=== PATIENT | male | born 1970 | race Caucasian/White ===

== ENCOUNTER 2019-12-18 13:42 | Outpatient (CLI) | payer MEDICARE, MEDICAID, SELFPAY ==
[2019-12-18 14:14] LABS: Basophils Absolute Auto 0.1 K/mm3 (0.0-0.1); Basophils Percent Auto 0.8 % (0.2-1.2); Eosinophils Absolute Auto 0.2 K/mm3 (0-0.3); Eosinophils Percent Auto 1.9 % (0-4.4); Hematocrit 45.1 % (42.0-52.0); Hemoglobin 15.4 g/dL (14.0-18.0); Immature Granulocyte Absolute 0.01 K/mm3 (0.00-0.031); Immature Granulocyte Percent A 0.1 % (0-0.5); Lymphocytes Absolute Auto 2.16 K/mm3 (0.9-3.2); Lymphocytes Percent Auto 27.5 % (18.3-44.2); Mean Corpuscular HGB Conc 34.1 g/dl (32-36); Mean Corpuscular Hemoglobin 30.1 pg (26-34); Mean Corpuscular Volume 88.1 fl (80-100); Mean Platelet Volume 11.2 fl (7.4-10.4); Monocytes Absolute Auto 0.5 K/mm3 (0.1-0.6); Monocytes Percent Auto 6.2 % (2.6-8.5); Neutrophils Percent Auto 63.5 % (45.5-73.1); Platelet Count Result 188 k/mm3 (150-375); Red Blood Count 5.12 M/mm3 (4.6-6.20); Red Cell Distribution Width 14.2 % (11.5-14.5); White Blood Count 7.9 K/mm3 (4.5-10.0)
[2019-12-18 14:25] LABS: Alanine Aminotransferase 26 U/L (4-50); Albumin Level 4.2 g/dL (3.5-5.1); Alkaline Phosphatase 111 U/L (38-126); Anion Gap 7 mmol/L (8-16); Aspartate Amino Transferase 24 U/L (17-59); Bilirubin,Total 0.4 mg/dL (0.2-1.3); Blood Urea Nitrogen 14 mg/dL (9-20); Calcium 8.8 mg/dL (8.4-10.2); Carbon Dioxide 25 mmol/L (22-30); Chloride 106 mmol/L (98-107); Cholesterol 169 mg/dL (0-200); Estimated Glomerular Filt Rate > 60; Glucose 97 mg/dL (75-110); HDL Direct 24 mg/dL; Potassium 3.7 mmol/L (3.4-5.0); Sodium 138 mmol/L (137-145); Triglycerides 123 mg/dL (<150)
[2019-12-18 14:36] LABS: LDL Cholesterol Direct 122 mg/dL
== END 2019-12-18 13:43 | disposition home or self-care (01) ==
PROVIDERS: PCP Internal Medicine; Visit Provider Nurse Practitioner
DX: E78.5 Hyperlipidemia, unspecified (principal)
CPT/HCPCS: 36415; 80053; 80061; 85025

== ENCOUNTER 2020-06-22 15:52 | Outpatient (CLI) | payer MEDICARE, MEDICAID, SELFPAY | END 2020-06-22 15:53 | disposition home or self-care (01) | LOC: ANHCOVIDVC 15:52 | PROVIDERS: PCP Internal Medicine | DX: Z23 Encounter for immunization (principal) | CPT/HCPCS: 0001A; 91300 ==

== ENCOUNTER 2020-07-13 15:46 | Outpatient (CLI) | payer MEDICARE, MEDICAID, SELFPAY | END 2020-07-13 15:47 | disposition home or self-care (01) | LOC: ANHCOVIDVC 15:46 | PROVIDERS: PCP Internal Medicine | DX: Z23 Encounter for immunization (principal) | CPT/HCPCS: 0002A; 91300 ==

== ENCOUNTER 2021-05-25 13:24 | Outpatient (CLI) | payer OTHER, SELFPAY ==
--- NOTE | ~2021-05-25 | MR_ITS ---
EXAMINATION: MR cervical spine wo con DATE: 05/25/2021 15:05 INDICATION: Cervical radiculopathy. TECHNIQUE: Magnetic resonance imaging (MRI) of the cervical spine was performed without intravenous c ontrast. Sequences included sagittal T2-weighted FSE, sagittal T2-weighted FS FSE, sagittal T1-weight ed FSE, axial MERGE, and axial T2-weighted FSE. COMPARISON: None FINDINGS: Bone alignment is normal. Vertebral body heights are normal. There is mildly decreased disc height at C3-C4, moderately decreased disc height at C4-C5, and severely decreased disc height at C5 -C6 and C6-C7. The spinal cord signal intensity is normal. The following disc levels are specifically discussed: C2-C3: The disc does not extend beyond the endplate margin. There is mild right uncovertebral joint o steoarthritis. There is moderate bilateral facet joint osteoarthritis. There is mild right neural for aminal stenosis. There is no central canal stenosis. C3-C4: There is a central protrusion. There is severe right and mild left uncovertebral joint osteoar thritis. There is severe bilateral facet joint osteoarthritis. There is mild bilateral neural foramin al stenosis. There is no central canal stenosis. C4-C5: The disc is bulging. There is severe bilateral uncovertebral joint osteoarthritis. There is mo derate right and severe left facet joint osteoarthritis. There is moderate bilateral neural foraminal stenosis. There is mild central canal stenosis. C5-C6: The disc is bulging. There is severe bilateral uncovertebral joint osteoarthritis. There is mo derate bilateral facet joint osteoarthritis. There is severe right and moderate left neural foraminal stenosis. There is mild central canal stenosis. C6-C7: The disc is bulging. There is severe bilateral uncovertebral joint osteoarthritis. There is mo derate bilateral facet joint osteoarthritis. There is moderate bilateral neural foraminal stenosis. T here is mild central canal stenosis. C7-T1: The disc does not extend beyond the endplate margin. There is no uncovertebral joint osteoarth ritis. There is severe bilateral facet joint osteoarthritis. There is mild bilateral neural foraminal stenosis. There is no central canal stenosis. IMPRESSION: 1. Severe cervical spondylosis. Reviewed, dictated and finalized at location E. COMMANDER
[2021-05-25 15:55] LABS: Basophils Percent Auto 0.5 % (0.2-1.2); Eosinophils Absolute Auto 0.1 K/mm3 (0-0.3); Eosinophils Percent Auto 1.5 % (0-4.4); Hematocrit 44.5 % (42.0-52.0); Hemoglobin 15.2 g/dL (14.0-18.0); Immature Granulocyte Absolute 0.02 K/mm3 (0.00-0.031); Immature Granulocyte Percent A 0.2 % (0-0.5); Lymphocytes Percent Auto 25.4 % (18.3-44.2); Mean Corpuscular HGB Conc 34.2 g/dl (32-36); Mean Corpuscular Hemoglobin 30.3 pg (26-34); Mean Corpuscular Volume 88.8 fl (80-100); Mean Platelet Volume 11.3 fl (7.4-10.4); Monocytes Absolute Auto 0.4 K/mm3 (0.1-0.6); Monocytes Percent Auto 5.1 % (2.6-8.5); Neutrophils Absolute Auto 5.6 K/mm3 (1.3-6.7); Neutrophils Percent Auto 67.3 % (45.5-73.1); Platelet Count Result 185 k/mm3 (150-375); Red Blood Count 5.01 M/mm3 (4.6-6.20); Red Cell Distribution Width 14.5 % (11.5-14.5); White Blood Count 8.3 K/mm3 (4.5-10.0)
[2021-05-25 16:32] LABS: Potassium 3.4 mmol/L (3.4-5.0)
[2021-05-25 16:43] LABS: LDL Cholesterol Direct 105 mg/dL
[2021-05-25 16:50] LABS: Alanine Aminotransferase 19 U/L (4-50); Albumin Level 4.2 g/dL (3.5-5.1); Alkaline Phosphatase 139 U/L (38-126); Anion Gap 5 mmol/L (8-16); Aspartate Amino Transferase 28 U/L (17-59); Bilirubin,Total 0.3 mg/dL (0.2-1.3); Blood Urea Nitrogen 14 mg/dL (9-20); Carbon Dioxide 26 mmol/L (22-30); Chloride 106 mmol/L (98-107); Cholesterol 154 mg/dL (0-200); Estimated Glomerular Filt Rate > 60; Glucose 85 mg/dL (65-110); HDL Direct 24 mg/dL; Sodium 137 mmol/L (137-145); Triglycerides 94 mg/dL (<150)
== END 2021-05-25 13:25 | disposition home or self-care (01) ==
LOC: ANHIMG 13:28
PROVIDERS: PCP Internal Medicine; Visit Provider Nurse Practitioner
DX: Z13.228 Encounter for screening for other metabolic disorders (principal); M47.22 Other spondylosis with radiculopathy, cervical region
CPT/HCPCS: 36415; 72141; 80053; 80061; 85025

== ENCOUNTER 2022-04-14 14:10 | Outpatient (CLI) | payer MEDICARE, MEDICAID, SELFPAY ==
[2022-04-14 21:15] LABS: Basophils Absolute Auto 0.1 K/mm3 (0.0-0.1); Basophils Percent Auto 0.9 % (0.2-1.2); Eosinophils Absolute Auto 0.1 K/mm3 (0-0.3); Eosinophils Percent Auto 1.6 % (0-4.4); Hematocrit 45.8 % (42.0-52.0); Hemoglobin 15.3 g/dL (14.0-18.0); Immature Granulocyte Absolute 0.02 K/mm3 (0.00-0.031); Immature Granulocyte Percent A 0.3 % (0-0.5); Lymphocytes Absolute Auto 2.34 K/mm3 (0.9-3.2); Lymphocytes Percent Auto 30.7 % (18.3-44.2); Mean Corpuscular HGB Conc 33.4 g/dl (32-36); Mean Corpuscular Hemoglobin 29.9 pg (26-34); Mean Corpuscular Volume 89.5 fl (80-100); Mean Platelet Volume 11.7 fl (7.4-10.4); Monocytes Absolute Auto 0.6 K/mm3 (0.1-0.6); Monocytes Percent Auto 8.1 % (2.6-8.5); Neutrophils Absolute Auto 4.4 K/mm3 (1.3-6.7); Neutrophils Percent Auto 58.4 % (45.5-73.1); Platelet Count Result 171 k/mm3 (150-375); Red Blood Count 5.12 M/mm3 (4.6-6.20); Red Cell Distribution Width 15.6 % (11.5-14.5); White Blood Count 7.6 K/mm3 (4.5-10.0)
[2022-04-14 21:29] LABS: Alanine Aminotransferase 31 U/L (6-50); Albumin Level 4.3 g/dL (3.5-5.1); Alkaline Phosphatase 112 U/L (38-126); Anion Gap 5 mmol/L (8-16); Aspartate Amino Transferase 40 U/L (17-59); Bilirubin,Total 0.6 mg/dL (0.2-1.3); Blood Urea Nitrogen 16 mg/dL (9-20); Calcium 8.8 mg/dL (8.4-10.2); Carbon Dioxide 30 mmol/L (22-30); Chloride 107 mmol/L (98-107); Cholesterol 188 mg/dL (0-200); Estimated Glomerular Filt Rate > 60; Glucose 94 mg/dL (65-110); HDL Direct 27 mg/dL; Potassium 4.2 mmol/L (3.4-5.0); Sodium 142 mmol/L (137-145); Triglycerides 106 mg/dL (<150)
[2022-04-14 21:40] LABS: LDL Cholesterol Direct 129 mg/dL
== END 2022-04-14 14:11 | disposition home or self-care (01) ==
LOC: ANHGOSHLAB 14:12
PROVIDERS: PCP Internal Medicine; Visit Provider Nurse Practitioner
DX: M54.12 Radiculopathy, cervical region (principal); E78.5 Hyperlipidemia, unspecified
CPT/HCPCS: 36415; 80053; 80061; 85025; 97110; 97140; 97162

== ENCOUNTER 2022-05-10 13:30 | Outpatient (RCR) | payer MEDICARE, MEDICAID, SELFPAY ==
--- NOTE | 2022-04-14 14:43 | PTOPEVAL1 ---
Assessment and note entered by Rito Burciaga, PT, DPT Evaluation Information Assessment Status Evaluation Diagnosis cervical spinal stenosis Onset 1 year Subjective Information Pt states it feels like he has 3 rocks in his neck that his neck has to move around. He states he has electric pain that goes from his ear, his shoulder, and his sternum. He states he has pain all throughout his neck and it just does not feel right. He states he has had neck pain for the last 3 years. He states he hurt his elbow about a year ago and since then he has been getting the electric shock motions. Reported Pain Level Pain Score 2: Self Report Assessment PT Clinical Summary Dennys presents to therapy today for his initial evaluation with a diagnosis of cervical spinal stenosis. Today he demonstrates decreased active cervical motion that is limited by pain. He reports tingling and sharp pains that intermittently occur in his posterior neck and shoulder. He has tenderness to palpation throughout his cervical spine and aaron scapular regions. Skilled physical therapy services are indicated to address the deficits noted above, to manage pain, and to improve cervical mobility. Plan of Care Interventions Electrical Stimulation,Hot Pack/Cold Pack,Manual Therapy,Mechanical Traction,Neuro Re-education, Patient/Caregiver Educati,Therapeutic Activities, Therapeutic Exercise PT Services Indicated Yes Treatment Frequency and 2x/wk for 4 wks Duration These treatments will address the objective and functional deficits as defined above. The patient will be advanced safely and appropriately in order for the patient to progress towards his/her prior level of function. Additional exercises will be introduced and as well as a comprehensive home exercise program upon discharge, if needed, ?to ensure carryover of functional gains achieved in the clinic. This treatment plan has been reviewed and agreement upon by the patient.
--- NOTE | 2022-05-10 14:08 | PTOPPROG ---
Assessment and note entered by Rito Burciaga, PT, DPT Evaluation Information Assessment Status Progress Diagnosis cervical spinal stenosis Onset 1 year Subjective Information Pt states his neck feels like it is doing a little bit better, but at the same time he feels like this is just the way it is. He states the main electric feeling still happens at the same intensity and frequency. Pt does report a decrease in sharp pain when his arm is outstretched. Assessment PT Clinical Summary Dennys Anderson presents to therapy today for his progress report following 7 visits of skilled therapy to treat his cervical stenosis with radiculopathy. Today he demonstrates good BUE strength and ROM. He continues to have cervical ROM deficits in all directions and this has improved only minimally since his initial visit. He reports no change in the intensity of his radicular symptoms. It is recommended that he follow up with his neurologist prior to continuing therapy d/t his slow progression with therapy. Plan of Care Interventions Electrical Stimulation,Hot Pack/Cold Pack,Manual Therapy,Mechanical Traction,Neuro Re-education, Patient/Caregiver Educati,Therapeutic Activities, Therapeutic Exercise PT Services Indicated Yes Treatment Frequency and pending neuro consult Duration These treatments will address the objective and functional deficits as defined above. The patient will be advanced safely and appropriately in order for the patient to progress towards his/her prior level of function. Additional exercises will be introduced and as well as a comprehensive home exercise program upon discharge, if needed, ?to ensure carryover of functional gains achieved in the clinic. This treatment plan has been reviewed and agreement upon by the patient.
--- NOTE | 2022-06-16 09:08 | PTOPDC ---
Assessment and note entered by Rito Burciaga, PT, DPT Evaluation Information Assessment Status Discharge - Pt Not Present Diagnosis cervical spinal stenosis Onset 1 year Subjective Information Pt called yesterday and states he would like to stop therapy. Assessment PT Clinical Summary Dennys completed 8 visits of skilled therapy from 04/07/23 to 05/10/22. He will be discharged at this time. If he needs additional therapy at a later date, she will need a new order. Plan of Care Treatment Frequency and discharge Duration
== END 2022-06-16 09:37 | disposition home or self-care (01) ==
LOC: ANHGOSHPT 13:30
PROVIDERS: PCP Internal Medicine; Visit Provider Nurse Practitioner
DX: M48.02 Spinal stenosis, cervical region (principal)
CPT/HCPCS: 97012; 97110; 97140; 97162; 97530

== ENCOUNTER → 2022-06-05 13:12 | Outpatient (CLI) | payer MEDICARE, MEDICAID, SELFPAY ==
--- NOTE | ~2022-06-05 | CT_ITS ---
EXAMINATION: CT cervical spine wo con DATE: 06/05/2022 13:29 INDICATION: Cervical radiculopathy. TECHNIQUE: Computed tomography (CT) of the cervical spine was performed without intravenous contrast. Automated exposure control and iterative reconstruction technique were employed. The dose-length pro duct was 304.49 mGy-cm. COMPARISON: Cervical spine MRI 05/25/2021 FINDINGS: There is 4 degrees dextrocurvature of cervical spine. Vertebral body heights are normal. Th ere is mildly decreased disc height at C3-C4 and severely decreased disc height from C4-C5 through C6 -C7. The following disc levels are specifically discussed: C2-C3: There is mild bilateral uncovertebral joint osteoarthritis. There is moderate right and mild l eft facet joint osteoarthritis. There is no neural foraminal stenosis. There is no central canal sten osis. C3-C4: There is moderate right and mild left uncovertebral joint osteoarthritis. There is severe bila teral facet joint osteoarthritis. There is mild bilateral neural foraminal stenosis. There is no cent ral canal stenosis. C4-C5: There is severe bilateral uncovertebral joint osteoarthritis. There is moderate right and jensen re left facet joint osteoarthritis. There is moderate bilateral neural foraminal stenosis. There is m ild central canal stenosis. C5-C6: There is severe bilateral uncovertebral joint osteoarthritis. There is moderate bilateral face t joint osteoarthritis. There is moderate bilateral neural foraminal stenosis. There is mild central canal stenosis. C6-C7: There is severe bilateral uncovertebral joint osteoarthritis. There is moderate right and jensen re left facet joint osteoarthritis. There is mild bilateral neural foraminal stenosis. There is mild central canal stenosis. C7-T1: There is no uncovertebral joint osteoarthritis. There is severe bilateral facet joint osteoart hritis. There is mild bilateral neural foraminal stenosis. There is no central canal stenosis. IMPRESSION: 1. Severe cervical spondylosis. Reviewed, dictated and finalized at location A. [employer] DIRECTOR
== END ==
PROVIDERS: PCP Internal Medicine; Visit Provider Pain Medicine Pain Medicine
DX: M47.22 Other spondylosis with radiculopathy, cervical region (principal)
CPT/HCPCS: 72125

== ENCOUNTER 2022-08-30 13:14 | Outpatient (CLI) | payer MEDICARE, MEDICAID, SELFPAY ==
[2022-08-30 21:03] LABS: Cholesterol 125 mg/dL (0-200); HDL Direct 31 mg/dL; Triglycerides 102 mg/dL (<150)
[2022-08-30 21:14] LABS: LDL Cholesterol Direct 78 mg/dL
== END 2022-08-30 13:15 | disposition home or self-care (01) ==
LOC: ANHGOSHLAB 13:16
PROVIDERS: PCP Internal Medicine; Visit Provider Nurse Practitioner
DX: E78.5 Hyperlipidemia, unspecified (principal)
CPT/HCPCS: 36415; 80061

== ENCOUNTER 2022-10-12 13:27 | Outpatient (CLI) | payer MEDICARE, MEDICAID, SELFPAY ==
--- NOTE | ~2022-10-12 | MR_ITS ---
MRI of the brain Clinical History: Occipital neuralgia Technique: Axial and sagittal T1-weighted images were acquired. These were followed by axial T2-weigh karolyn, diffusion weighted, gradient, and FLAIR images. Thin cut coronal T1-weighted and T2-weighted nita ges, and thin cut axial T1-weighted and T2-weighted images were performed through the internal audito ry canals. Following intravenous administration of 16 cc MultiHance gadolinium, T1-weighted fat-sat i maging was performed through the brain in the axial and coronal planes. Thin cut T1-weighted postcont rast imaging was performed through the internal auditory canals/brainstem in the axial and coronal pl anes. Findings: No abnormal signal seen in the brain parenchyma. No acute infarct, intracranial hemorrhage, or mass lesion. Ventricles and subarachnoid spaces are unremarkable. Orbits are unremarkable. Paranasal sinuses and m astoid air cells are clear. Major intracranial flow voids appear intact. Sagittal midline structures are intact. No abnormal mass lesion or enhancement seen at the internal auditory canals or cerebellopontine angle s. Trigeminal nerves and Meckel's caves are unremarkable. IMPRESSION: No significant abnormality seen. Reviewed, dictated and finalized at location .
== END 2022-10-12 13:28 | disposition home or self-care (01) ==
PROVIDERS: PCP Internal Medicine; Visit Provider Neurological Surgery
DX: M54.81 Occipital neuralgia (principal); G50.1 Atypical facial pain
CPT/HCPCS: 70553; A9577

== ENCOUNTER 2022-11-27 15:28 | Outpatient (CLI) | payer MEDICARE, MEDICAID, SELFPAY ==
--- NOTE | ~2022-11-27 | MR_ITS ---
EXAMINATION: MR cervical spine wo con DATE: 11/27/2022 16:25 INDICATION: Disease of spinal cord, unspecified. TECHNIQUE: Magnetic resonance imaging (MRI) of the cervical spine was performed without intravenous c ontrast. Sequences included sagittal T2-weighted FSE, sagittal T2-weighted FS FSE, sagittal T1-weight ed FSE, axial MERGE, and axial T2-weighted FSE. COMPARISON: Cervical spine MRI 05/25/2021 FINDINGS: There is 13 degrees dextroscoliosis of cervicothoracic spine. Vertebral body heights are no rmal. There is mildly decreased disc height at C3-C4, moderately decreased disc height at C4-C5, jensen rely decreased disc height at C5-C6 and C6-C7. The spinal cord signal intensity is normal. The follow ing disc levels are specifically discussed: C2-C3: The disc does not extend beyond the endplate margin. There is no uncovertebral joint osteoarth ritis. There is severe bilateral facet joint osteoarthritis. There is no neural foraminal stenosis. T here is no central canal stenosis. C3-C4: The disc is bulging. There is severe right and moderate left uncovertebral joint osteoarthriti s. There is severe bilateral facet joint osteoarthritis. There is moderate bilateral neural foraminal stenosis. There is no central canal stenosis. C4-C5: The disc is bulging. There is moderate bilateral uncovertebral joint osteoarthritis. There is moderate right and severe left facet joint osteoarthritis. There is moderate bilateral neural foramin al stenosis. There is mild central canal stenosis. C5-C6: The disc is bulging. There is severe bilateral uncovertebral joint osteoarthritis. There is se cristina bilateral facet joint osteoarthritis. There is severe right and moderate left neural foraminal s tenosis. There is mild central canal stenosis with ventral indentation of the spinal cord. C6-C7: The disc is bulging. There is severe bilateral uncovertebral joint osteoarthritis. There is mo derate bilateral facet joint osteoarthritis. There is moderate bilateral neural foraminal stenosis. T here is mild central canal stenosis. C7-T1: The disc does not extend beyond the endplate margin. There is no uncovertebral joint osteoarth ritis. There is severe bilateral facet joint osteoarthritis. There is mild bilateral neural foraminal stenosis. There is no central canal stenosis. IMPRESSION: 1. Normal spinal cord. Sensitivity and specificity are mildly decreased by motion artifact. 2. Severe cervical spondylosis, stable from 05/25/2021. Reviewed, dictated and finalized at location A. IMPRESSION: 1. Normal spinal cord. Sensitivity and specificity are mildly decreased by marlee on artifact. 2. Severe cervical spondylosis, stable from 05/25/2021.
== END 2022-11-27 15:29 | disposition home or self-care (01) ==
PROVIDERS: PCP Internal Medicine; Visit Provider Neurological Surgery
DX: G95.9 Disease of spinal cord, unspecified (principal); G50.1 Atypical facial pain; M47.892 Other spondylosis, cervical region
CPT/HCPCS: 72141

== ENCOUNTER 2023-01-02 14:09 | Outpatient (CLI) | payer MEDICARE, MEDICAID, SELFPAY ==
--- NOTE | 2023-01-02 15:00 | NEURO_ITS ---
Impression: # Complains of numbness in hands. # Right ulnar neuropathy across the elbow. # No Carpal Tunnel Syndrome. # Normal needle/EMG exam. Nerve Conduction Studies Anti Sensory Summary Table Stim Site NR Peak (ms) P-T Amp (?V) Site1 Site2 Delta-P (ms) Dist (cm) Morris (m/s) Left Median Anti Sensory (2-3nd Digit) Wrist 3.6 64.1 Wrist 2-3nd Digit 3.6 14.0 39 Wrist 3.7 68.2 Wrist 2-3nd Digit 3.6 14.0 39 Right Median Anti Sensory (2-3nd Digit) Wrist 3.4 42.6 Wrist 2-3nd Digit 3.4 14.0 41 Wrist 3.6 37.7 Wrist 2-3nd Digit 3.4 14.0 41 Left Radial Anti Sensory (Base 1st Digit) Wrist 2.0 18.2 Wrist Base 1st Digit 2.0 0.0 Right Radial Anti Sensory (Base 1st Digit) Wrist 2.2 26.3 Wrist Base 1st Digit 2.2 0.0 Left Ulnar Anti Sensory (5th Digit) Wrist 3.3 56.4 Wrist 5th Digit 3.3 14.0 42 Right Ulnar Anti Sensory (5th Digit) Wrist 2.9 66.5 Wrist 5th Digit 2.9 14.0 48 Motor Summary Table Stim Site NR Onset (ms) O-P Amp (mV) Site1 Site2 Delta-0 (ms) Dist (cm) Morris (m/s) Left Median Motor (Abd Poll Brev) Wrist 3.8 4.2 Elbow Wrist 5.6 33.0 59 Elbow 9.4 3.3 Right Median Motor (Abd Poll Brev) Wrist 4.0 4.6 Elbow Wrist 5.3 28.0 53 Elbow 9.3 3.4 Left Ulnar Motor (Abd Dig Minimi) Wrist 2.7 7.0 A Elbow Wrist 5.4 30.0 56 A Elbow 8.1 6.2 Right Ulnar Motor (Abd Dig Minimi) Wrist 2.8 5.7 A Elbow Wrist 6.7 30.0 45 A Elbow 9.5 4.4 B Elbow Wrist 5.5 22.0 40 B Elbow 8.3 4.2 F Wave Studies NR F-Lat (ms) L-R F-Lat (ms) Left Median (Mrkrs) (Abd Poll Brev) 29.53 0.12 Right Median (Mrkrs) (Abd Poll Brev) 29.42 0.12 Left Ulnar (Mrkrs) (Abd Dig Min) 30.35 0.00 Right Ulnar (Mrkrs) (Abd Dig Min) 30.35 0.00 EMG Side Muscle Nerve Root Ins Act Fibs Amp Dur Recrt Comment Right 1stDorInt Ulnar C8-T1 Nml Nml Nml Nml Nml Right Ext Indicis Radial (Post Int) C7-8 Nml Nml Nml Nml Nml Right Ext Digitorum Radial (Post Int) C7-8 Nml Nml Nml Nml Nml Right BrachioRad Radial C5-6 Nml Nml Nml Nml Nml Right PronatorTeres Median C6-7 Nml Nml Nml Nml Nml Right Abd Poll Brev Median C8-T1 Nml Nml Nml Nml Nml Left 1stDorInt Ulnar C8-T1 Nml Nml Nml Nml Nml Left Ext Indicis Radial (Post Int) C7-8 Nml Nml Nml Nml Nml Left Ext Digitorum Radial (Post Int) C7-8 Nml Nml Nml Nml Nml Left BrachioRad Radial C5-6 Nml Nml Nml Nml Nml Left PronatorTeres Median C6-7 Nml Nml Nml Nml Nml Left Abd Poll Brev Median C8-T1 Nml Nml Nml Nml Nml Right Biceps Musculocut C5-6 Nml Nml Nml Nml Nml Right Triceps Radial C6-7-8 Nml Nml Nml Nml Nml Right Deltoid Axillary C5-6 Nml Nml Nml Nml Nml Left Biceps Musculocut C5-6 Nml Nml Nml Nml Nml Left Triceps Radial C6-7-8 Nml Nml Nml Nml Nml Left Deltoid Axillary C5-6 Nml Nml Nml Nml Nml MTDD
== END 2023-01-02 14:10 | disposition home or self-care (01) ==
LOC: ANHNEURO 14:10
PROVIDERS: PCP Internal Medicine; Visit Provider Neurological Surgery
DX: G95.9 Disease of spinal cord, unspecified (principal); G56.01 Carpal tunnel syndrome, right upper limb
CPT/HCPCS: 95886; 95911

== ENCOUNTER 2023-03-03 19:18 | Emergency (ER) | payer MEDICARE, MEDICAID, SELFPAY ==
--- NOTE | ~2023-03-03 | CT_ITS ---
EXAMINATION: CT abdomen pelvis w con DATE: 03/03/2023 21:04 INDICATION: RLQ pain TECHNIQUE: Computed tomography (CT) of the abdomen and pelvis was performed with 100 mL Omnipaque-350 intravenous contrast. Automated exposure control and iterative reconstruction technique were employe d. The dose-length product was 546.63 mGy-cm. COMPARISON: None. FINDINGS: Lower thorax: Unremarkable Liver: Normal. Biliary/Gallbladder: Gallbladder is normal. No bile duct dilation. Pancreas: No mass or duct dilation. Spleen: Normal. Adrenals:No mass. Kidneys: No suspicious mass, obstructing stone, or hydronephrosis. GI tract: No small or large bowel dilation. Normal appendix. Mesentery/Peritoneum: No ascites, mass, or free air. Retroperitoneum: No mass. Pelvis: Pelvic organs are within normal limits. Soft Tissues: Extensive muscular atrophy in the lower abdomen and pelvis. Bones: No acute osseous finding. IMPRESSION: No acute abdominopelvic process detected Reviewed, dictated and finalized at location K. GATION PARTNER
[2023-03-03 19:20] VITALS: BP 164/87; PULSE 71; RESP 16; TEMP 36.3; O2SAT 100
[2023-03-03 19:54] LABS: Basophils Percent Auto 0.4 % (0.2-1.2); Eosinophils Absolute Auto 0.1 K/mm3 (0-0.3); Eosinophils Percent Auto 0.6 % (0-4.4); Hematocrit 45.4 % (42.0-52.0); Hemoglobin 15.3 g/dL (14.0-18.0); Immature Granulocyte Absolute 0.02 K/mm3 (0.00-0.031); Immature Granulocyte Percent A 0.2 % (0-0.5); Lymphocytes Absolute Auto 1.87 K/mm3 (0.9-3.2); Lymphocytes Percent Auto 19.9 % (18.3-44.2); Mean Corpuscular HGB Conc 33.7 g/dl (32-36); Mean Platelet Volume 11.9 fl (7.4-10.4); Monocytes Absolute Auto 0.5 K/mm3 (0.1-0.6); Monocytes Percent Auto 4.9 % (2.6-8.5); Neutrophils Absolute Auto 6.9 K/mm3 (1.3-6.7); Platelet Count Result 178 k/mm3 (150-375); Red Cell Distribution Width 15.5 % (11.5-14.5); White Blood Count 9.4 K/mm3 (4.5-10.0)
[2023-03-03 20:04] LABS: Alanine Aminotransferase 27 U/L (6-50); Albumin Level 4.4 g/dL (3.5-5.1); Alkaline Phosphatase 122 U/L (38-126); Anion Gap 11 mmol/L (8-16); Aspartate Amino Transferase 30 U/L (17-59); Bilirubin,Total 0.5 mg/dL (0.2-1.3); Blood Urea Nitrogen 13 mg/dL (9-20); Calcium 9.5 mg/dL (8.4-10.2); Carbon Dioxide 27 mmol/L (22-30); Chloride 105 mmol/L (98-107); Estimated CRCL calculation 145 ml/min; Estimated Glomerular Filt Rate > 60; Glucose 97 mg/dL (65-110); Lipase 20 U/L (23-300); Potassium 3.3 mmol/L (3.4-5.0); Sodium 143 mmol/L (137-145)
--- NOTE | 2023-03-03 20:36 | ED.GENADULT ---
[facility] - General Adult General Chief complaint: Abdominal Pain Stated complaint: Right abd/pelvic pain Time Seen by Provider: 03/03/23 19:26 Source: patient Mode of arrival: ambulatory Limitations: no limitations History of Present Illness HPI narrative: This is a 52-year-old male who presents to the ED with chief complaint of right lower quadrant abdominal pain x2 weeks and worse today. Reports the pain comes in waves and is currently at a 1/10. He states when it comes on it is a 15/10. States he has been dealing with constipation and impacted stool was recently urge to go but cannot right now. States he felt nauseous today but denies vomiting. Last bowel movement was today. Denies urinary complaints, fevers, chills, back pain, flank pain. He notes past history of hernia with surgical hernia repair but no other abdominal surgeries. Related Data Allergies Allergy/AdvReac Type Severity Reaction Status Date / Time No Known Allergies Allergy Mild Verified 03/03/23 19:19 Review of Systems Review of Systems: All systems as dictated in [facility] Past Medical History Medical History Benign tumor of throat x2 Cervical spondylosis Congenital paraplegia Cyst of maxilla Hyperlipidemia Spinal injury Spinal stenosis Family History Family History Grandparent Family history of malignant neoplasm Family history of lung cancer Mother Sleep apnea Social History Social History Social History: Dennys is very confident filling out medical forms. In the last 12 months he has not received assistance from an organization or program. Caffeine-soda Smoking packs per day: 0.5 Smoking cigarettes per day: 10.0 Years smoked: 20 Smoking pack-years: 10.00 Smoking status: Current every day smoker Alcohol intake: current Alcohol use details: occasional Lack of Transportation: No Lack of Food: Never True Current Housing: I Have Housing Concerned About Future Housing: No Difficulty Paying Gas/Electric Bills: No Difficulty Paying for Meds: No Currently Unemployed: YES Education: High School Diploma/GED Difficulty w/ Childcare or Family Care: No Exam Narrative: GENERAL: Well-appearing, well-nourished, and in no acute distress. HEAD: Normocephalic, atraumatic. EYES: PERRLA and EOMI. ENT: Nares clear, no rhinorrhea or epistaxis. Mucous membranes moist. Oropharynx without tonsillar hypertrophy exudate or other lesions. NECK: Supple. No adenopathy or masses. CHEST: No respiratory distress. Clear to auscultation. No wheezes rales or rhonchi HEART: Regular rate and rhythm. No murmur heard. Normal peripheral pulses. ABDOMEN: Mild suprapubic, left lower quadrant, right lower quadrant tenderness. Soft, nondistended, normal active bowel sounds. Negative peritoneal signs. MSK: Normal range of motion. No edema. SKIN: Warm, dry, no rash. NEURO: Alert and oriented x3. No focal deficits. PSYCH: Normal mood and affect. Course Vital Signs Vital signs: Vital Signs Temperature 97.3 F L 03/03/23 19:20 Pulse Rate 71 03/03/23 19:20 Respiratory Rate 16 03/03/23 19:20 Blood Pressure 164/87 H 03/03/23 19:20 Pulse Oximetry 100 03/03/23 19:20 Oxygen Delivery Room Air 03/03/23 19:20 Temperature 97.3 F L 03/03/23 19:20 Pulse Rate 58 L 03/03/23 22:18 Respiratory Rate 15 03/03/23 22:18 Blood Pressure 134/60 03/03/23 22:18 Pulse Oximetry 100 03/03/23 22:18 Oxygen Delivery Room Air 03/03/23 19:20 Medical Decision Making MDM Narrative Medical decision making narrative: This is a 52-year-old male who presents to the ED with chief complaint of right lower quadrant pain intermittent for the past couple of weeks. Also has constipation. Vitals are normal. Exam shows right lower quadrant and l
[2023-03-03 20:37] VITALS: BP 130/66; PULSE 58; RESP 15; O2SAT 98
[2023-03-03 20:44] LABS: Appearance Urine Clear (Clear); Bacteria Urine None Seen /hpf; Bilirubin Urine Negative (Negative); Color Urine Yellow (Yellow); Glucose Urine UA Negative (Negative); Ketones Urine Negative (Negative); Leukocyte Esterase Ur Negative LEU/UL (Negative); Nitrate Urine Negative (Negative); Non Pathogenic Casts 0-2; Protein Urine Negative (Negative); Specific Grav Ur 1.021 (1.001-1.035); Squamous Epithelial Cell Urine None seen /hpf (Few); WBC Urine 0-5 /hpf
[2023-03-03 20:45] LABS: Add Urine Microscopic? YES
[2023-03-03 22:18] VITALS: BP 134/60; PULSE 58; RESP 15; O2SAT 100
== END 2023-03-03 22:20 | disposition home or self-care (01) ==
PROVIDERS: Emergency Provider Physician Assistant; PCP Internal Medicine
DX: R10.31 Right lower quadrant pain (principal); E78.5 Hyperlipidemia, unspecified; F17.210 Nicotine dependence, cigarettes, uncomplicated
CPT/HCPCS: 36415; 74177; 80053; 81001; 83690; 85025; 99284; Q9967

== ENCOUNTER 2024-02-05 13:15 | Outpatient (CLI) | payer MEDICARE, MEDICAID, SELFPAY ==
[2024-02-05 18:47] LABS: Basophils Absolute Auto 0.1 K/mm3 (0.0-0.1); Basophils Percent Auto 0.6 % (0.2-1.2); Eosinophils Absolute Auto 0.1 K/mm3 (0-0.3); Hematocrit 45.3 % (42.0-52.0); Hemoglobin 14.9 g/dL (14.0-18.0); Immature Granulocyte Absolute 0.03 K/mm3 (0.00-0.031); Immature Granulocyte Percent A 0.4 % (0-0.5); Lymphocytes Absolute Auto 1.81 K/mm3 (0.9-3.2); Lymphocytes Percent Auto 22.9 % (18.3-44.2); Mean Corpuscular HGB Conc 32.9 g/dl (32-36); Mean Corpuscular Hemoglobin 30.9 pg (26-34); Mean Platelet Volume 12.4 fl (7.4-10.4); Monocytes Absolute Auto 0.4 K/mm3 (0.1-0.6); Monocytes Percent Auto 4.9 % (2.6-8.5); Neutrophils Absolute Auto 5.6 K/mm3 (1.3-6.7); Neutrophils Percent Auto 70.2 % (45.5-73.1); Platelet Count Result 193 k/mm3 (150-375); Red Blood Count 4.82 M/mm3 (4.6-6.20); Red Cell Distribution Width 15.3 % (11.5-14.5); White Blood Count 7.9 K/mm3 (4.5-10.0)
[2024-02-05 19:10] LABS: Alanine Aminotransferase 20 U/L (6-50); Albumin Level 4.2 g/dL (3.5-5.1); Alkaline Phosphatase 103 U/L (38-126); Anion Gap 9 mmol/L (4-12); Aspartate Amino Transferase 54 U/L (17-59); Bilirubin,Total 0.3 mg/dL (0.2-1.3); Blood Urea Nitrogen 14 mg/dL (9-20); Calcium 8.9 mg/dL (8.4-10.2); Carbon Dioxide 28 mmol/L (22-30); Chloride 103 mmol/L (98-107); Cholesterol 143 mg/dL (0-200); Estimated Glomerular Filt Rate > 60; Glucose 85 mg/dL (65-110); HDL Direct 28 mg/dL; Potassium 3.2 mmol/L (3.4-5.0); Sodium 140 mmol/L (137-145); Triglycerides 65 mg/dL (<150)
[2024-02-05 19:21] LABS: LDL Cholesterol Direct 93 mg/dL
[2024-02-05 19:39] LABS: Prostate Specific Antigen 0.6 ng/mL (< OR = 4.0)
== END 2024-02-05 13:16 | disposition home or self-care (01) ==
PROVIDERS: PCP Internal Medicine; Visit Provider Nurse Practitioner
DX: E78.5 Hyperlipidemia, unspecified (principal); Z12.5 Encounter for screening for malignant neoplasm of prostate
CPT/HCPCS: 36415; 80053; 80061; 84153; 85025; G0103

== ENCOUNTER 2024-02-18 01:45 | Day surgery (SDC) | payer MEDICARE, MEDICAID, SELFPAY ==
[2024-02-07 14:28] VITALS: BMI 30.9
--- NOTE | 2024-02-18 11:42 | P.PNAN_ITS ---
Anes - Initial Pre Proc Eval Procedure: Operation Date: 02/18/24 12:30 Proposed Procedures p Screening Colonoscopy - Bob Francis MD Date/Time: 02/18/24 11:42 Surgeon: Bob Francis MD Pre Op Diagnosis: Neoplasm screening Patient Data Age: 53 Gender: M Height: 1.63 m Weight: 81.6 kg Allergies Allergy/AdvReac Type Severity Reaction Status Date / Time No Known Allergies Allergy Mild Verified 02/07/24 14:24 Home Medications Medication Instructions Recorded Confirmed Type cyclobenzaprine 10 mg tablet 10 mg PO BID PRN muscle spasm #30 01/01/24 02/07/24 Rx tabs acetaminophen 650 mg 650 mg PO Q12H PRN Pain 02/07/24 02/07/24 History tablet,extended release (Tylenol Arthritis Pain) [id number] 250 1 tablet PO Q4-6H PRN Pain 02/07/24 02/07/24 History mg-250 mg-65 mg tablet (Excedrin Extra Strength) gabapentin 300 mg capsule 300 mg PO TID PRN Pain 02/07/24 02/07/24 History Patient hx anesthesia problems: none Family hx anesthesia problems: none Results Review: All pre-operative results and documents have been reviewed as part of the pre- operative evaluation. [facility] Past Medical History Medical History Benign tumor of throat x2 Cervical spondylosis Congenital paraplegia Cyst of maxilla Hyperlipidemia Spinal injury Spinal stenosis Family History Family History Grandparent Family history of malignant neoplasm Family history of lung cancer Mother Sleep apnea Social History Social History Social History: Dennys is very confident filling out medical forms. In the last 12 months he has not received assistance from an organization or program. Caffeine-soda Smoking packs per day: 0.75 Smoking cigarettes per day: 15.0 Years smoked: 30 Smoking pack-years: 22.50 Smoking status: Current every day smoker Alcohol intake: former Drinks per week: 5 Alcohol use details: occasional Substance use: current Substance use type: marijuana Do You Feel Safe in your Home?: Yes Lack of Transportation: No Lack of Food: Never True Current Housing: I Have Housing Concerned About Future Housing: No Difficulty Paying Gas/Electric Bills: No Difficulty Paying for Meds: No Currently Unemployed: YES Education: High School Diploma/GED Difficulty w/ Childcare or Family Care: No Living arrangements: with family Spiritual care concerns: No Anes - Eval Final PreProcedure Day of Procedure 02/18/24 11:42 Patient weight: obese Heart: regular rate and rhythm Lungs: clear to auscultation Airway: Mallampati scale class II Neurological: alert and oriented Last oral intake: >/= 8 hours ASA classification: III Emergent: no Anesthetic plan: proceed Anesthesia type and monitoring: general GIVS and standard monitoring Results Review: All pre-operative results and documents have been reviewed as part of the pre- operative evaluation. Informed Consent: The patient's anesthetic plan and its attendant risks and benefits were discussed with the patient/family/POA. Questions were solicited and answers provided to the satisfaction of the patient/family/POA.
[2024-02-18 11:46] VITALS: BP 147/85; PULSE 67; RESP 16; TEMP 36.3; O2SAT 100; BMI 28.0
[2024-02-18] MEDS: LACTATED RINGERS 1,000 ML 150 ML IV CONT (11:56)
--- NOTE | 2024-02-18 12:38 | PM.HPGS ---
History of Present Illness History of Present Illness Consent: Risks, benefits, and alternatives have been discussed and questions answered. Patient agrees to proceed with procedure. Chief complaint: Neoplasm screening Narrative: Dennys Duarte is a 53 year old male here for first screening colonoscopy Review of Systems Review of Systems: All systems reviewed & are unremarkable except as noted in HPI and below PMFSH Past Medical History Medical History Benign tumor of throat x2 Cervical spondylosis Congenital paraplegia Cyst of maxilla Hyperlipidemia Spinal injury Spinal stenosis Family History Family History Grandparent Family history of malignant neoplasm Family history of lung cancer Mother Sleep apnea Social History Social History Social History: Dennys is very confident filling out medical forms. In the last 12 months he has not received assistance from an organization or program. Caffeine-soda Smoking packs per day: 0.75 Smoking cigarettes per day: 15.0 Years smoked: 30 Smoking pack-years: 22.50 Smoking status: Current every day smoker Alcohol intake: former Drinks per week: 5 Alcohol use details: occasional Substance use: current Substance use type: marijuana Do You Feel Safe in your Home?: Yes Lack of Transportation: No Lack of Food: Never True Current Housing: I Have Housing Concerned About Future Housing: No Difficulty Paying Gas/Electric Bills: No Difficulty Paying for Meds: No Currently Unemployed: YES Education: High School Diploma/GED Difficulty w/ Childcare or Family Care: No Living arrangements: with family Spiritual care concerns: No Meds Home Medications and Allergies Home Medications Medication Instructions Recorded Confirmed Type cyclobenzaprine 10 mg tablet 10 mg PO BID PRN muscle spasm #30 01/01/24 02/18/24 Rx tabs acetaminophen 650 mg 650 mg PO Q12H PRN Pain 02/07/24 02/18/24 History tablet,extended release (Tylenol Arthritis Pain) ksrtwut-fygqjbidpxjjb-lrvrtkth 250 1 tablet PO Q4-6H PRN Pain 02/07/24 02/18/24 History mg-250 mg-65 mg tablet (Excedrin Extra Strength) gabapentin 300 mg capsule 300 mg PO TID PRN Pain 02/07/24 02/18/24 History Allergies Allergy/AdvReac Type Severity Reaction Status Date / Time No Known Allergies Allergy Mild Verified 02/18/24 11:45 Vital Signs Vital Signs - 24 hr 02/18/24 11:46 Temperature 97.4 F L Pulse Rate 67 Respiratory Rate 16 Blood Pressure 147/85 H Pulse Oximetry 100 Oxygen Delivery Room Air Exam Const: General: comfortable and no acute distress HENMT: Face/Nose/Sinus: Normal nares present Eyes: General: appearance normal, both eyes and all related structures Neck: Neck: no JVD Resp: Auscultation: clear to auscultation bilaterally Cardio: Rate: regular rate Rhythm: regular rhythm GI: Inspection: non-distended GI Palp: Yes Soft to palpation Skin: General skin exam: normal color Neuro: General: gait normal Speech: normal speech Extrem: General: normal to inspection Psych: Mental Status: mental status grossly normal Assessment and Plan Assessment and plan (1) Screening for colon cancer: Code(s): Z12.11 - Encounter for screening for malignant neoplasm of colon Status: Acute Assessment and Plan: colonoscopy
[2024-02-18 12:55] VITALS: BP 107/73; PULSE 72; RESP 13; O2SAT 99
[2024-02-18 13:05] VITALS: BP 119/76; PULSE 63; RESP 22; O2SAT 99
[2024-02-18 13:15] VITALS: BP 123/77; PULSE 60; RESP 13; O2SAT 100
== END 2024-02-18 13:28 | disposition home or self-care (01) ==
PROVIDERS: PCP Internal Medicine; Referring Provider Nurse Practitioner; Visit Provider Internal Medicine Gastroenterology
PROC: 0DJD8ZZ Inspection of Lower Intestinal Tract, Via Natural or Artificial Opening Endoscopic (ICD-10-PCS; CPT 45378; principal; 2024-02-18 12:30)
DX: Z12.11 Encounter for screening for malignant neoplasm of colon (principal); D12.2 Benign neoplasm of ascending colon; D12.3 Benign neoplasm of transverse colon; K64.8 Other hemorrhoids; F17.210 Nicotine dependence, cigarettes, uncomplicated; E66.9 Obesity, unspecified; Z68.28 Body mass index [BMI] 28.0-28.9, adult; F12.90 Cannabis use, unspecified, uncomplicated
CPT/HCPCS: 45385; 88305; J2704; J7120

== ENCOUNTER 2024-12-17 11:29 | Outpatient (CLI) | payer MEDICARE, MEDICAID, SELFPAY ==
--- OUTSIDE RECORDS SUMMARY | 2024-12-17 13:22 | XMS_ITS | Clinical Summary ---
Author Organization [facility] Address [address] [place] [id number] Care Team Providers Care Custom Seamstress Name Role Phone Antonio Harvey DO Primary Care Provider [phone] Allergies No known active allergies Medications simvastatin (ZOCOR) 10 MG tablet Take 1 tablet (10 mg total) by mouth daily. 12/21/2022 Active cyclobenzaprine (FLEXERIL) 10 MG tablet Take 1 tablet (10 mg total) by mouth 2 (two) times daily as needed for Muscle Spasms. 11/29/2022 Active gabapentin (NEURONTIN) 300 MG capsule Take 1 capsule (300 mg total) by mouth 3 (three) times daily. 09/26/2023 Active Active Problems Problem Noted Date Diagnosed Date Ulnar neuropathy of right upper extremity 2023 Cervical dystonia 01/23/2023 Trigeminal neuralgia 01/23/2023 Immunizations Immunization Administration Dates Next Due PFIZER COVID-19 (ORIGINAL FO RMULATION, PURPLE CAP) mRNA, LNP-S, PF, 30 MCG/0.3 ML DOSE 07/13/2020,06/22/2020 Family History Medical History Relation Comments Hypertension Father Relation Status Comments Father Alive Mother Alive Social History Tobacco Use Types Packs/Day Years Used Date Smoking Tobacco: Every Day Cigarettes 0.5 25 Passive Smoke Exposure: Past Smokeless Tobacco: Never Tobacco Cessation:Ready to Q uit: No; Counseling Given: Yes Alcohol Use Standard Drinks/Week Comments Not Currently 0 (1 standard drink = 0.6 oz pur e alcohol) PHQ-2 Answer Date Recorded Patient Health Questionnaire-2 Score 0 04/10/2024 Sex and Gender Information Value Date Recorded Sex Assigned at Male 05/06/2024 10:40 AM ANODE ADJUSTER Legal Sex Male 1:48 PM CDT Gender Identity Not on file Sexual Orientation Not on file Last Filed Vital Signs Vital Sign Reading Time Taken Comments Blood Pressure 130/83 08/29/2024 1:29 PM CDT Pulse 78 08/29/2024 1:29 PM CDT Temperature 36.6 C (97.9 F) 05/23/2024 2:22 PM ANODE ADJUSTER Respiratory Rate 12 08/29/2024 1:29 PM CDT Oxygen Saturation 97% 08/29/2024 1:29 PM CDT Inhaled Oxygen Concentration - - Weight 74.8 kg (165 lb) 05/23/2024 2:22 PM ANODE ADJUSTER Height 162.6 cm (5' 4) 08/29/2024 1:29 PM CDT Body Mass Index 28.32 05/23/2024 2:22 PM ANODE ADJUSTER Plan of Treatment Upcoming Encounters Date Type Department Care Team (Late st Contact Info) Description 03/02/2025 2:20 PM ANODE ADJUSTER Office Visit [facility] [address] [facility] [address] [place] [address] Antoni Quintanilla MD [address] [place] [address] Health Maintenance Due Date Last Done Comments Colorectal Cancer Screening Colonoscopy (10 Years) 1972 Annual Physical 10/05/1975 Hepatitis C 1990 DTaP, Tdap and Td Vaccines ( 1 - Tdap) 10/05/1991 Hepatitis B Vaccines (1 of 3 - 19+ 3-dose series) 10/05/1991 Pneumococcal Vaccine: 50+ Years (1 of 2 - PCV) 10/05/1991 Zoster Vaccines (1 of 2) 2022 COVID-19 Vaccine (3 - 2023-2 5 season) 2023 07/13/2020, 06/22/2020 PHQ-2 (Physician Andreafski) 04/16/2024 04/10/2024 Meningococcal B Vaccine Aged Out No l onger eligible based on patient's age to complete this topic Meningococcal Vaccine Aged Out No maxime tracy eligible based on patient's age to complete this topic RSV Immunizations Under 20 Months Aged Out No longer eligible b ased on patient's age to complete this topic Insurance MEDICARE MEDICAID Care Teams Custom Seamstress Relationship Specialty Start Date End Date Antonio Harvey DO [address] [facility] [address] [place] [address] PCP - General INTERNAL MEDICINE 10/10/23
[2024-12-17 13:26] LABS: Hematocrit 43.9 % (42.0-52.0); Hemoglobin 14.2 g/dL (14.0-18.0); Immature Granulocyte Percent A 0.4 % (0-0.5); Lymphocytes Absolute Auto 1.68 K/mm3 (0.9-3.2); Mean Corpuscular HGB Conc 32.3 g/dl (32-36); Mean Corpuscular Hemoglobin 30.1 pg (26-34); Mean Corpuscular Volume 93.2 fl (80-100); Nucleated Red Blood Cells Absolute Auto 0.000 K/mm3 (0.0-0.012); Nucleated Red Blood Cells Perc 0.0 % (0.0-0.2); Platelet Count Result 197 k/mm3 (150-375); Red Blood Count 4.71 M/mm3 (4.6-6.20); White Blood Count 7.0 K/mm3 (4.5-10.0)
[2024-12-17 13:41] LABS: Alanine Aminotransferase 22 U/L (6-50); Albumin Level 4.2 g/dL (3.5-5.1); Alkaline Phosphatase 111 U/L (38-126); Anion Gap 6 mmol/L (4-12); Aspartate Amino Transferase 36 U/L (17-59); Bilirubin,Total 0.3 mg/dL (0.2-1.3); Blood Urea Nitrogen 18 mg/dL (9-20); Calcium 9.3 mg/dL (8.4-10.2); Carbon Dioxide 29 mmol/L (22-30); Chloride 103 mmol/L (98-107); Cholesterol 174 mg/dL (0-200); Estimated Glomerular Filt Rate > 60; Glucose 102 mg/dL (65-110); HDL Direct 29 mg/dL; Potassium 4.1 mmol/L (3.4-5.0); Sodium 138 mmol/L (137-145); Total Protein 7.0 g/dL (6.3-8.2); Triglycerides 118 mg/dL (<150)
[2024-12-17 14:16] LABS: Thyroid Stimulating Hormone 3.180 uIU/mL (0.465-4.680)
[2024-12-17 18:22] LABS: Prostate Specific Antigen 0.6 ng/mL (< OR = 4.0)
== END 2024-12-17 11:30 | disposition home or self-care (01) ==
LOC: ANHGOSHLAB 11:31
PROVIDERS: PCP Internal Medicine; Visit Provider Nurse Practitioner
DX: E78.5 Hyperlipidemia, unspecified (principal); Z12.5 Encounter for screening for malignant neoplasm of prostate; R63.4 Abnormal weight loss
CPT/HCPCS: 36415; 80053; 80061; 84153; 84443; 85025; G0103

== ENCOUNTER 2024-12-31 14:15 | Outpatient (CLI) | payer MEDICARE, MEDICAID, SELFPAY ==
--- NOTE | ~2024-12-31 | XR_ITS ---
XR cervical spine min 6V Indication: Cervical radicular pain; loss of left arm mobility Comparison: None Findings: Grade 1 retrolisthesis of C4 on C5, no fracture identified, no subluxation flexion and extension,there is narrowing of the foramina bilaterally at multiple levels Moderate to severe loss of disc height throughout most marked at C4-5 C5-6 and C6-7. Soft tissues unremarkable Impression: No acute abnormality. Reviewed, dictated and finalized at location A. Impression: No acute abnormality.
== END 2024-12-31 14:16 | disposition home or self-care (01) ==
LOC: MICIMG 14:16
PROVIDERS: PCP Internal Medicine; Visit Provider Nurse Practitioner Family
DX: M54.12 Radiculopathy, cervical region (principal); M54.2 Cervicalgia; Z74.09 Other reduced mobility
CPT/HCPCS: 72052